=== PATIENT | male | born 1955 | race Caucasian/White ===

== ENCOUNTER 2021-04-26 16:45 | Observation (INO) | payer OTHER ==
[~2021-04-26] VITALS: Ht 170.2 cm; Wt 92.4 kg
[2021-04-26 17:25] LABS: BASOPHILS ABSOLUTE AUTO 0.04 K/mm3 (0.00-0.23); BASOPHILS PERCENT AUTO 0 % (0-2); EOSINOPHILS ABSOLUTE AUTO 0.08 K/mm3 (0.00-0.68); EOSINOPHILS PERCENT AUTO 1 % (0-6); Hematocrit 31.7 % (37.0-53.0); Hemoglobin 10.4 g/dL (13.5-17.5); IMMATURE GRAN ABSOLUTE AUTO 0.04 K/mm3 (0.00-0.10); IMMATURE GRAN PERCENT AUTO 0 % (0-1); LYMPHOCYTES ABSOLUTE AUTO 1.84 K/mm3 (0.84-5.20); LYMPHOCYTES PERCENT AUTO 20 % (21-46); MONOCYTES ABSOLUTE AUTO 0.91 K/mm3 (0.16-1.47); MONOCYTES PERCENT AUTO 10 % (4-13); Mean Corpuscular HGB 30.2 pg (26.0-34.0); Mean Corpuscular HGB Conc 32.8 g/dL (31.5-36.5); Mean Corpuscular Volume 92 fL (80-100); Mean Platelet Volume 9.5 fL (9.1-12.4); NEUTROPHILS ABSOLUTE AUTO 6.15 K/mm3 (1.96-9.15); NEUTROPHILS PERCENT AUTO 68 % (41-73); Platelet Count 221 K/mm3 (150-400); RDW Coefficient Variation 13.3 % (11.7-14.2); RDW Standard Deviation 45.1 fL (35.1-46.3); Red Blood Cell Count 3.44 M/mm3 (4.30-5.90); White Blood Cell Count 9.06 K/mm3 (4.00-11.30)
[2021-04-26 17:59] LABS: Albumin, Blood 3.1 g/dL (3.4-5.0); Albumin/Globulin Ratio 0.9 (0.8-1.8); Bilirubin, Total 0.4 mg/dL (0.1-1.0); Bun/Creatinine Ratio 13.3 (12.0-20.0); Calcium, Blood 9.1 mg/dL (8.5-10.1); Creatinine, Blood 1.5 mg/dL (0.60-1.20); Globulin, Blood 3.4 g/dL (2.2-4.0); Magnesium, Blood 1.7 mg/dL (1.6-2.4); Potassium, Blood 3.2 mmol/L (3.5-5.5); Total Protein, Blood 6.5 g/dL (6.4-8.2); Troponin I 0.228 ng/mL (0.000-0.040)
[2021-04-26] MEDS ORDERED: ELIQUIS5 M2 PO (18:58)
[2021-04-26] MEDS ORDERED: Aspir 8181 MG PO (18:58)
[2021-04-26] MEDS ORDERED: NOVOLOG FL100 UNIT/3 SC (18:59)
[2021-04-26] MEDS ORDERED: GABA100 PO (18:59)
[2021-04-26] MEDS ORDERED: INSULANI SC (18:59)
[2021-04-26] MEDS ORDERED: METO100ER PO (19:00)
[2021-04-26] MEDS ORDERED: METF500 PO (19:00)
[2021-04-26] MEDS ORDERED: OXYC5 PO (19:00)
[2021-04-26] MEDS ORDERED: LISI20 PO (19:00)
[2021-04-26] MEDS ORDERED: PHYT5 PO (19:01)
[2021-04-26] MEDS ORDERED: Crestor20 MG PO (19:01)
[2021-04-26] MEDS ORDERED: TRAZ50 PO (19:03)
[2021-04-26] MEDS ORDERED: SODIUM THIOSULFATE IV (19:03)
[2021-04-26] MEDS ORDERED: TORSE20 PO (19:03)
[2021-04-26] MEDS ORDERED: TAMS.4ER PO (19:03)
[2021-04-27 01:40] LABS: Bun/Creatinine Ratio 13.1 (12.0-20.0); Calcium, Blood 8.9 mg/dL (8.5-10.1); Creatinine, Blood 1.53 mg/dL (0.60-1.20); Potassium, Blood 3.2 mmol/L (3.5-5.5)
--- NOTE | 2021-04-27 07:21 | NUR ---
SHIFT SUMMARY: ADMITTED TO THE FLOOR DUE TO HIGH BLOOD PRESSURES AT HOME AND ELEVATED TROPONIN. AOX3, ABLE TO TRANSFER SELF TO THE BED. PAINFUL WITH MOVEMENT DUE TO LESIONS THAT HE HAS ON BLE. LUNG SOUNDS ARE CLEAR. HR SINUS ON TELE. NO CHEST PAIN THE REST OF SHIFT. VS WERE SLIGHTLY ELEVATED DYSTOLIC. NO LIGHTHEADNESS, CHANGES IN VISION. BLE EDEMA +2. SEVERAL LESIONS NOTED FROM HAVING CALCIPHYLAXIS. [facility] DRESSINGS WERE CHANGED, 6 WOUNDS TOTAL. LARGEST ON THE RIGHT POSTERIOR CALF. PICTURES ARE IN THE CHART. WOUND CARE COMPLETED. BLOOD SUGAR 104 LAST NIGHT, REFUSED HIS LONG ACTING. STATES IT WOULD HAVE DROPPED HIM ALL THE WAY. VERY KNOWLEDGEABLE ABOUT HIS DIABETES AND MANGAGES IT WELL TO KEEP BLOOD SUGAR BELOW 140. SLEPT REST OF THE SHIFT. REPORT GIVEN TO DAYSHIFT. CALL LIGHT IN REACH.
[2021-04-27 12:18] LABS: Calcium, Blood 9.2 mg/dL (8.5-10.1); Creatinine, Blood 1.54 mg/dL (0.60-1.20); Potassium, Blood 3.9 mmol/L (3.5-5.5)
[2021-04-27] MEDS ORDERED: ACET325 PO (14:49)
[2021-04-27] MEDS ORDERED: Aspir 8181 MG PO (14:50)
[2021-04-27] MEDS ORDERED: TORS10 PO (14:54)
--- NOTE | 2021-04-27 15:48 | NUR ---
REVIEW D'C WITH PATIENT AND S.O. AWARE OF CHANGES TO DOSES OF MEDS AND TO STOP DEMADEX FOR 2 DAYS. AWARE NEEDS TO TALK TO HIS RADIO ELECTRONICS OFFICER TO SET UP APPT FOR ANGIO. DENIES ANY C.P/PRESSURE AT THIS TIME. TO F/U V.A. DUE TO RARE INFECTION. ANSWER ALL QUESTIONS. VERBALIZES UNDERSTANDING. IN W/C TO POV DRIVEN BY S.O.
== END 2021-04-27 16:20 | disposition home or self-care (01) ==
LOC: ER 16:45 → SURS 16:46 → MEDS 16:46
PROVIDERS: Internal Medicine; Student in an Organized Health Care Education/Training Program; ADMIT Internal Medicine
DX: R79.89 Other specified abnormal findings of blood chemistry (principal); I13.0 Hypertensive heart and chronic kidney disease with heart failure and stage 1 through stage 4 chronic kidney disease, or unspecified chronic kidney disease; E11.22 Type 2 diabetes mellitus with diabetic chronic kidney disease; N18.32 Chronic kidney disease, stage 3b; I50.9 Heart failure, unspecified; E83.59 Other disorders of calcium metabolism; J44.9 Chronic obstructive pulmonary disease, unspecified; I16.0 Hypertensive urgency; I48.20 Chronic atrial fibrillation, unspecified; E87.6 Hypokalemia; Z79.4 Long term (current) use of insulin; Z79.01 Long term (current) use of anticoagulants
CPT/HCPCS: 36415; 80048; 80053; 82947; 83605; 83735; 84484; 85025; 93005; 93010; A9270; G0378; J1815

== ENCOUNTER 2021-05-26 16:50 | Emergency (ER) | payer OTHER ==
[~2021-05-26] VITALS: Ht 170.2 cm; Wt 86.2 kg
[~2021-05-26 16:50] MED LIST: ACET325 PO; Aspir 8181 MG PO; Crestor20 MG PO; ELIQUIS5 M2 PO; GABA100 PO; INSULANI SC; LISI20 PO; METF500 PO; METO100ER PO; NOVOLOG FL100 UNIT/3 SC; OXYC5 PO; PHYT5 PO; SODIUM THIOSULFATE IV; TAMS.4ER PO; TORS10 PO; TORSE20 PO; TRAZ50 PO
[2021-05-26 17:34] LABS: BASOPHILS ABSOLUTE AUTO 0.04 K/mm3 (0.00-0.23); BASOPHILS PERCENT AUTO 0 % (0-2); EOSINOPHILS PERCENT AUTO 1 % (0-6); Hematocrit 34.4 % (37.0-53.0); IMMATURE GRAN ABSOLUTE AUTO 0.03 K/mm3 (0.00-0.10); IMMATURE GRAN PERCENT AUTO 0 % (0-1); LYMPHOCYTES ABSOLUTE AUTO 1.72 K/mm3 (0.84-5.20); LYMPHOCYTES PERCENT AUTO 19 % (21-46); MONOCYTES PERCENT AUTO 13 % (4-13); Mean Corpuscular HGB 28.8 pg (26.0-34.0); Mean Corpuscular Volume 90 fL (80-100); Mean Platelet Volume 9.8 fL (9.1-12.4); NEUTROPHILS ABSOLUTE AUTO 5.98 K/mm3 (1.96-9.15); NEUTROPHILS PERCENT AUTO 66 % (41-73); Platelet Count 187 K/mm3 (150-400); RDW Coefficient Variation 13.7 % (11.7-14.2); RDW Standard Deviation 44.3 fL (35.1-46.3); Red Blood Cell Count 3.82 M/mm3 (4.30-5.90); White Blood Cell Count 9.07 K/mm3 (4.00-11.30)
[2021-05-26 17:47] LABS: Albumin, Blood 3.3 g/dL (3.4-5.0); Bilirubin, Total 0.4 mg/dL (0.1-1.0); Bun/Creatinine Ratio 22.7 (12.0-20.0); Calcium, Blood 9.6 mg/dL (8.5-10.1); Creatinine, Blood 1.72 mg/dL (0.60-1.20); Globulin, Blood 3.3 g/dL (2.2-4.0); Total Protein, Blood 6.6 g/dL (6.4-8.2); Troponin I 0.111 ng/mL (0.000-0.040)
== END 2021-05-26 20:43 | disposition home or self-care (01) ==
LOC: ER 16:50
PROVIDERS: Emergency Medicine
DX: R09.1 Pleurisy (principal); I11.0 Hypertensive heart disease with heart failure; I50.9 Heart failure, unspecified; E11.9 Type 2 diabetes mellitus without complications; N28.9 Disorder of kidney and ureter, unspecified; R77.8 Other specified abnormalities of plasma proteins; Z79.01 Long term (current) use of anticoagulants; Z79.82 Long term (current) use of aspirin; Z79.899 Other long term (current) drug therapy; Z79.4 Long term (current) use of insulin
CPT/HCPCS: 71046; 80053; 83880; 84484; 85025; 93005; 93010; 96374; 99285-25; A9270; J3010

== ENCOUNTER → 2021-12-13 | Outpatient (CLI) | payer OTHER ==
[2021-12-13 20:09] LABS: BASOPHILS ABSOLUTE AUTO 0.04 K/mm3 (0.00-0.23); BASOPHILS PERCENT AUTO 0 % (0-2); EOSINOPHILS ABSOLUTE AUTO 0.09 K/mm3 (0.00-0.68); EOSINOPHILS PERCENT AUTO 1 % (0-6); Hematocrit 30.5 % (37.0-53.0); Hemoglobin 9.6 g/dL (13.5-17.5); IMMATURE GRAN ABSOLUTE AUTO 0.03 K/mm3 (0.00-0.10); IMMATURE GRAN PERCENT AUTO 0 % (0-1); LYMPHOCYTES ABSOLUTE AUTO 1.78 K/mm3 (0.84-5.20); LYMPHOCYTES PERCENT AUTO 20 % (21-46); MONOCYTES ABSOLUTE AUTO 0.84 K/mm3 (0.16-1.47); MONOCYTES PERCENT AUTO 9 % (4-13); Mean Corpuscular HGB 26.3 pg (26.0-34.0); Mean Corpuscular HGB Conc 31.5 g/dL (31.5-36.5); Mean Corpuscular Volume 84 fL (80-100); Mean Platelet Volume 9.8 fL (9.1-12.4); NEUTROPHILS ABSOLUTE AUTO 6.19 K/mm3 (1.96-9.15); NEUTROPHILS PERCENT AUTO 69 % (41-73); Platelet Count 202 K/mm3 (150-400); RDW Coefficient Variation 17.4 % (11.7-14.2); RDW Standard Deviation 53.3 fL (35.1-46.3); Red Blood Cell Count 3.65 M/mm3 (4.30-5.90); White Blood Cell Count 8.97 K/mm3 (4.00-11.30)
[2021-12-13 20:30] LABS: Albumin/Globulin Ratio 0.7 (0.8-1.8); Bilirubin, Direct 0.1 mg/dL (0.0-0.3); Bilirubin, Indirect 0.1 mg/dL (0.1-0.7); Bilirubin, Total 0.2 mg/dL (0.1-1.0); Bun/Creatinine Ratio 27.9 (12.0-20.0); Calcium, Blood 8.8 mg/dL (8.5-10.1); Creatinine, Blood 1.47 mg/dL (0.60-1.20); Globulin, Blood 4.2 g/dL (2.2-4.0); Potassium, Blood 3.9 mmol/L (3.5-5.5); Total Protein, Blood 7.2 g/dL (6.4-8.2)
[2021-12-13 20:33] LABS: C-Reactive Protein, High Sens. 21.5 mg/L (0.000-3.000)
== END ==
LOC: LAB SHORT 17:10
DX: M86.171 Other acute osteomyelitis, right ankle and foot (principal); M61.9 Calcification and ossification of muscle, unspecified
CPT/HCPCS: 80053; 82248; 85025; 86141

== ENCOUNTER → 2021-12-20 | Outpatient (CLI) | payer OTHER ==
[2021-12-20 15:25] LABS: BASOPHILS ABSOLUTE AUTO 0.05 K/mm3 (0.00-0.23); BASOPHILS PERCENT AUTO 1 % (0-2); EOSINOPHILS ABSOLUTE AUTO 0.03 K/mm3 (0.00-0.68); EOSINOPHILS PERCENT AUTO 0 % (0-6); Hematocrit 31.9 % (37.0-53.0); Hemoglobin 9.8 g/dL (13.5-17.5); IMMATURE GRAN ABSOLUTE AUTO 0.02 K/mm3 (0.00-0.10); IMMATURE GRAN PERCENT AUTO 0 % (0-1); LYMPHOCYTES ABSOLUTE AUTO 1.54 K/mm3 (0.84-5.20); LYMPHOCYTES PERCENT AUTO 20 % (21-46); MONOCYTES ABSOLUTE AUTO 0.91 K/mm3 (0.16-1.47); MONOCYTES PERCENT AUTO 12 % (4-13); Mean Corpuscular HGB 25.3 pg (26.0-34.0); Mean Corpuscular HGB Conc 30.7 g/dL (31.5-36.5); Mean Corpuscular Volume 82 fL (80-100); Mean Platelet Volume 9.9 fL (9.1-12.4); NEUTROPHILS ABSOLUTE AUTO 5.29 K/mm3 (1.96-9.15); NEUTROPHILS PERCENT AUTO 68 % (41-73); Platelet Count 252 K/mm3 (150-400); RDW Coefficient Variation 16.7 % (11.7-14.2); RDW Standard Deviation 50.2 fL (35.1-46.3); Red Blood Cell Count 3.87 M/mm3 (4.30-5.90); White Blood Cell Count 7.84 K/mm3 (4.00-11.30)
[2021-12-20 15:29] LABS: Albumin, Blood 3.1 g/dL (3.4-5.0); Albumin/Globulin Ratio 0.8 (0.8-1.8); Bilirubin, Direct 0.1 mg/dL (0.0-0.3); Bilirubin, Indirect 0.1 mg/dL (0.1-0.7); Bilirubin, Total 0.2 mg/dL (0.1-1.0); Bun/Creatinine Ratio 32.3 (12.0-20.0); Calcium, Blood 9.3 mg/dL (8.5-10.1); Creatinine, Blood 1.58 mg/dL (0.60-1.20); Globulin, Blood 4.1 g/dL (2.2-4.0); Potassium, Blood 4.1 mmol/L (3.5-5.5); Total Protein, Blood 7.2 g/dL (6.4-8.2)
== END ==
LOC: LAB SHORT 13:30
DX: M86.171 Other acute osteomyelitis, right ankle and foot (principal); B95.61 Methicillin susceptible Staphylococcus aureus infection as the cause of diseases classified elsewhere; M61.9 Calcification and ossification of muscle, unspecified; E83.59 Other disorders of calcium metabolism; I13.0 Hypertensive heart and chronic kidney disease with heart failure and stage 1 through stage 4 chronic kidney disease, or unspecified chronic kidney disease; N18.9 Chronic kidney disease, unspecified; I50.20 Unspecified systolic (congestive) heart failure
CPT/HCPCS: 80053; 82248; 85025

== ENCOUNTER 2021-12-27 21:07 | Inpatient (IN) | payer OTHER ==
[~2021-12-27] VITALS: Ht 170.2 cm; Wt 83.9 kg
[2021-12-27 22:07] LABS: BASOPHILS ABSOLUTE AUTO 0.04 K/mm3 (0.00-0.23); BASOPHILS PERCENT AUTO 0 % (0-2); EOSINOPHILS PERCENT AUTO 0 % (0-6); Hematocrit 33.4 % (37.0-53.0); Hemoglobin 10.1 g/dL (13.5-17.5); IMMATURE GRAN PERCENT AUTO 1 % (0-1); LYMPHOCYTES PERCENT AUTO 4 % (21-46); MONOCYTES ABSOLUTE AUTO 1.84 K/mm3 (0.16-1.47); MONOCYTES PERCENT AUTO 10 % (4-13); Mean Corpuscular HGB 24.7 pg (26.0-34.0); Mean Corpuscular HGB Conc 30.2 g/dL (31.5-36.5); Mean Corpuscular Volume 82 fL (80-100); Mean Platelet Volume 9.7 fL (9.1-12.4); NEUTROPHILS ABSOLUTE AUTO 16.11 K/mm3 (1.96-9.15); NEUTROPHILS PERCENT AUTO 85 % (41-73); Platelet Count 226 K/mm3 (150-400); RDW Coefficient Variation 16.8 % (11.7-14.2); RDW Standard Deviation 49.8 fL (35.1-46.3); Red Blood Cell Count 4.09 M/mm3 (4.30-5.90); White Blood Cell Count 18.89 K/mm3 (4.00-11.30)
[2021-12-27 22:19] LABS: Albumin, Blood 3.1 g/dL (3.4-5.0); Albumin/Globulin Ratio 0.9 (0.8-1.8); Bilirubin, Total 0.5 mg/dL (0.1-1.0); Bun/Creatinine Ratio 23.6 (12.0-20.0); Calcium, Blood 8.9 mg/dL (8.5-10.1); Creatinine, Blood 1.95 mg/dL (0.60-1.20); Globulin, Blood 3.6 g/dL (2.2-4.0); Potassium, Blood 5.1 mmol/L (3.5-5.5); Total Protein, Blood 6.7 g/dL (6.4-8.2)
[2021-12-27] MEDS ORDERED: ALEN70 PO (23:01)
[2021-12-27] MEDS ORDERED: KLOR-CON 1010 ME6 PO (23:02)
[2021-12-27] MEDS ORDERED: JARDIANCE10 MG PO (23:03)
[2021-12-27] MEDS ORDERED: ENTRESTO 24 MG1 EACH PO (23:03)
[2021-12-27 23:26] LABS: Source, Urine Clean Catch
[2021-12-27 23:31] LABS: Appearance, Urine Clear (Clear); Bilirubin, Urine Neg (Neg); Blood, Urine 5+ (Neg); Color, Urine Yellow (P-Yellow); Glucose Qualitative, Urine 4+ (Neg); Ketones, Urine Neg (Neg); Leukocyte Esterase, Urine Neg (Neg); Nitrite, Urine Neg (Neg); Protein, Urine 3+ (Neg); Urobilinogen, Urine NORM (Normal)
[2021-12-28 00:20] LABS: Amorphous Light (0-Heavy); Bacteria Few /hpf; Granular Casts 0-2 /lpf (0); Squamous Epithelial Cells Rare /hpf (Few)
[2021-12-28 12:45] LABS: BASOPHILS ABSOLUTE AUTO 0.05 K/mm3 (0.00-0.23); BASOPHILS PERCENT AUTO 0 % (0-2); EOSINOPHILS PERCENT AUTO 0 % (0-6); Hematocrit 32.3 % (37.0-53.0); Hemoglobin 9.9 g/dL (13.5-17.5); IMMATURE GRAN ABSOLUTE AUTO 0.11 K/mm3 (0.00-0.10); IMMATURE GRAN PERCENT AUTO 1 % (0-1); LYMPHOCYTES ABSOLUTE AUTO 1.39 K/mm3 (0.84-5.20); LYMPHOCYTES PERCENT AUTO 7 % (21-46); MONOCYTES ABSOLUTE AUTO 2.15 K/mm3 (0.16-1.47); MONOCYTES PERCENT AUTO 11 % (4-13); Mean Corpuscular HGB 24.7 pg (26.0-34.0); Mean Corpuscular HGB Conc 30.7 g/dL (31.5-36.5); Mean Corpuscular Volume 81 fL (80-100); Mean Platelet Volume 10.2 fL (9.1-12.4); NEUTROPHILS ABSOLUTE AUTO 16.36 K/mm3 (1.96-9.15); NEUTROPHILS PERCENT AUTO 82 % (41-73); Platelet Count 227 K/mm3 (150-400); RDW Coefficient Variation 16.9 % (11.7-14.2); RDW Standard Deviation 49.9 fL (35.1-46.3); Red Blood Cell Count 4.01 M/mm3 (4.30-5.90); White Blood Cell Count 20.06 K/mm3 (4.00-11.30)
[2021-12-28 12:51] LABS: Bun/Creatinine Ratio 22.5 (12.0-20.0); Calcium, Blood 9.1 mg/dL (8.5-10.1); Creatinine, Blood 2.13 mg/dL (0.60-1.20); Potassium, Blood 5.3 mmol/L (3.5-5.5)
[2021-12-28] MEDS ORDERED: CEFTRIAXONE2 G1 IV (13:12)
[2021-12-28 13:25] LABS: Albumin, Blood 2.7 g/dL (3.4-5.0); Albumin/Globulin Ratio 0.8 (0.8-1.8); Bilirubin, Direct 0.3 mg/dL (0.0-0.3); Bilirubin, Indirect 0.3 mg/dL (0.1-0.7); Bilirubin, Total 0.6 mg/dL (0.1-1.0); Globulin, Blood 3.6 g/dL (2.2-4.0); Total Protein, Blood 6.3 g/dL (6.4-8.2)
[2021-12-28 16:55] LABS: Influenza A, PCR NEGATIVE (NEGATIVE); Influenza B, PCR NEGATIVE (NEGATIVE); Resp Syncytial Virus, PCR NEGATIVE (NEGATIVE); SARS-Cov-2 (COVID-19) PCR, MMC NEGATIVE (NEGATIVE)
--- NOTE | 2021-12-28 18:44 | NUR ---
SHIFT SUMMARY PT WILL BE TRANFERRING TO [facility]. HIS TEAM OF SPECIALISTS IS UP THERE AND HIS AND DR FEEL THAT IT WOULD BE BEST FOR HIM TO BE SEEN BY A TRAVERTINE INSTALLER UP THERE. HE HAS BEEN CONFUSED TODAY WHILE WAS NOT IN THE ROOM. UNABLE TO REMEMEBR DAY OR TOWN HE WAS IN. WHILE IS HERE HE WAS MUCH MORE COHERENT AND COULD GIVE A BETTER REPORT ON HIMSELF. REPORT WAS GIVEN TO [facility] NURSE CRYSTAL. WILL CONTINUE TO MONITOR UNTIL TRANSPORT ARRIVES.
== END 2021-12-28 18:59 | DRG 872 ==
LOC: ER 21:07 → MEDS 12-28 05:38
PROVIDERS: Internal Medicine; Internal Medicine Nephrology; Physician Assistant; ADMIT Internal Medicine
DX: A41.9 Sepsis, unspecified organism (principal); N28.0 Ischemia and infarction of kidney; I13.0 Hypertensive heart and chronic kidney disease with heart failure and stage 1 through stage 4 chronic kidney disease, or unspecified chronic kidney disease; I50.22 Chronic systolic (congestive) heart failure; E87.1 Hypo-osmolality and hyponatremia; I48.20 Chronic atrial fibrillation, unspecified; E87.2 Acidosis; Z20.822 Contact with and (suspected) exposure to COVID-19; E83.59 Other disorders of calcium metabolism; N18.30 Chronic kidney disease, stage 3 unspecified; E11.22 Type 2 diabetes mellitus with diabetic chronic kidney disease; E11.40 Type 2 diabetes mellitus with diabetic neuropathy, unspecified; F43.10 Post-traumatic stress disorder, unspecified; F32.A Depression, unspecified; Z79.4 Long term (current) use of insulin; Z79.01 Long term (current) use of anticoagulants; Z79.899 Other long term (current) drug therapy
CPT/HCPCS: 0241U; 36415; 71045; 74177; 80048; 80053; 80076; 81001; 82947; 83605; 83615; 83880; 85025; 87040; 93306; 96365; 96366; 96367; 96375; 99285-25; A9270; J0696; J1815; J2543; J3370; J7030; J7050; Q9967

== ENCOUNTER 2022-01-20 17:38 | Inpatient (IN) | payer OTHER ==
[~2022-01-20] VITALS: Ht 170.2 cm; Wt 102.3 kg
[~2022-01-20 17:38] MED LIST changes: +ALEN70 PO; +CEFTRIAXONE2 G1 IV; +ENTRESTO 24 MG1 EACH PO; +JARDIANCE10 MG PO; +POTCHL20ER PO; -TORS10 PO
[2022-01-20 18:46] LABS: BASOPHILS ABSOLUTE AUTO 0.01 K/mm3 (0.00-0.23); BASOPHILS PERCENT AUTO 0 % (0-2); EOSINOPHILS ABSOLUTE AUTO 0.03 K/mm3 (0.00-0.68); EOSINOPHILS PERCENT AUTO 0 % (0-6); Hematocrit 29.2 % (37.0-53.0); Hemoglobin 8.7 g/dL (13.5-17.5); IMMATURE GRAN ABSOLUTE AUTO 0.03 K/mm3 (0.00-0.10); IMMATURE GRAN PERCENT AUTO 0 % (0-1); LYMPHOCYTES ABSOLUTE AUTO 1.17 K/mm3 (0.84-5.20); LYMPHOCYTES PERCENT AUTO 12 % (21-46); MONOCYTES ABSOLUTE AUTO 0.91 K/mm3 (0.16-1.47); MONOCYTES PERCENT AUTO 9 % (4-13); Mean Corpuscular HGB 23.6 pg (26.0-34.0); Mean Corpuscular HGB Conc 29.8 g/dL (31.5-36.5); Mean Corpuscular Volume 79 fL (80-100); Mean Platelet Volume 10.8 fL (9.1-12.4); NEUTROPHILS ABSOLUTE AUTO 7.77 K/mm3 (1.96-9.15); NEUTROPHILS PERCENT AUTO 78 % (41-73); NRBC ABSOLUTE 0.06 K/mm3 (0.00-0.02); NRBC Auto 0.6 /100 WBC (0.0-0.2); Platelet Count 186 K/mm3 (150-400); RDW Coefficient Variation 17.2 % (11.7-14.2); RDW Standard Deviation 48.8 fL (35.1-46.3); Red Blood Cell Count 3.69 M/mm3 (4.30-5.90); White Blood Cell Count 9.92 K/mm3 (4.00-11.30)
[2022-01-20 19:09] LABS: Alanine Aminotransfer (ALT/SGP 320 U/L (12-78); Albumin/Globulin Ratio 0.9 (0.8-1.8); Alk Phos 663 U/L (50-136); Anion Gap 9 mmol/L (6-16); Aspartate Aminotrans (AST/SGOT 124 U/L (12-37); Bilirubin, Total 0.9 mg/dL (0.1-1.0); Blood Urea Nitrogen 77 mg/dL (8-24); Bun/Creatinine Ratio 28.7 (12.0-20.0); CO2, Blood 19 mmol/L (21-32); Calcium, Blood 8.4 mg/dL (8.5-10.1); Chloride, Blood 99 mmol/L (98-108); Creatinine, Blood 2.68 mg/dL (0.60-1.20); Globulin, Blood 3.4 g/dL (2.2-4.0); Glomerular Filtration Rate 24 (60-); Glucose, Blood 532 mg/dL (70-99); Potassium, Blood 5.6 mmol/L (3.5-5.5); Sodium, Blood 127 mmol/L (136-145); Total Protein, Blood 6.4 g/dL (6.4-8.2)
[2022-01-20 19:52] LABS: Base Excess Venous -9.3 mmol/L; Bicarbonate Venous 17.5 mmol/L (24.0-30.0); PCO2 Venous 35.2 mmHg (38-42); PO2 Venous 84.5 mmHg (38-42)
[2022-01-20 20:55] LABS: Source, Urine Clean Catch
[2022-01-20 20:59] LABS: Appearance, Urine Clear (Clear); Bilirubin, Urine Neg (Neg); Blood, Urine 1+ (Neg); Color, Urine Yellow (P-Yellow); Glucose Qualitative, Urine 4+ (Neg); Ketones, Urine Neg (Neg); Leukocyte Esterase, Urine Neg (Neg); Nitrite, Urine Neg (Neg); Protein, Urine 3+ (Neg); Urobilinogen, Urine NORM (Normal)
[2022-01-20 21:07] LABS: Bacteria Few /hpf; Hyaline Casts 0-2 /lpf (0-2); Squamous Epithelial Cells Rare /hpf (Few)
[2022-01-20 22:13] LABS: CHOL/HDL RATIO 2.4; Cholesterol 95 mg/dL (50-200); HDL Cholesterol 40 mg/dL (>39); LDL/HDL RATIO 0.9; Low Density Lipoprotein Chol 36 mg/dL (0-110); Triglycerides 94 mg/dL (30-160); Very Low Density Lipoprot Chol 18 mg/dL (6-32)
[2022-01-20 23:57] LABS: International Normalized Ratio 1.16; Prothrombin Time Results 12.1 Sec (9.7-11.5)
[2022-01-21 00:27] LABS: Bun/Creatinine Ratio 29.9 (12.0-20.0); Calcium, Blood 8.1 mg/dL (8.5-10.1); Creatinine, Blood 2.64 mg/dL (0.60-1.20); Percent Saturation 3.8 % (20.0-50.0)
--- NOTE | 2022-01-21 03:21 | NUR ---
ASSUMED PT CARE AT 2310 PT ARRIVED FROM ED [place]. ALERT AND ORIENTED TO PERSON, PLACE, CITY, YEAR, AND SURROUNDINGS. PT NOTED TO BE MAKING NON-SENSICAL STATEMENTS AT TIMES, WELL FALLING ASLEEP MID CONVERSATION. PT APPEARS MENTALLY ALTERED/FORGETFUL. VERY PLEASANT AND COOPERATIVE WITH CARES. C/O PAIN TO BILATERAL LEGS/FEET. STATES HE HAS NEUROPATHY AND TAKES GABAPENTIN AT HOME FOR THE PAIN. CHRONIC ULCERS ALSO NOTED TO BLE'S; HOWEVER, LEFT OPEN TO AIR D/T NO DRAINAGE. PICTURES ARE IN CHART. INSULIN INFUSING AT 8 UNITS/HR UPON ARRIVAL TO UNIT; BLOOD SUGAR CHECKED SHORTLY AFTER AND INSULIN DROPPED TO 3 UNITS/HR. PT HAS A 20G TO LEFT AC. ATTEMPTED ANOTHER IV START FOR HEPARIN GTT, WHICH WAS UNSUCCESSFUL. POWERGLIDE WAS STARTED TO LEFT UPPER ARM WITH SUCCESS AND HEPARIN STARTED AT ORDERED RATE OF 15 UNITS/KG/HR. CALL LIGHT IS WITHIN REACH. WILL CONTINUE TO MONITOR UNTIL REPORT IS HANDED OFF TO ONCOMING RN. SEE SHIFT SUMMARY FOR FURTHER DETAILS.
[2022-01-21] MEDS ORDERED: METO100ER PO (03:34)
[2022-01-21] MEDS ORDERED: LIDO5TO TOP (03:35)
[2022-01-21] MEDS ORDERED: COMBIVENT RESPIM4 G1 MT (03:37)
[2022-01-21] MEDS ORDERED: ALBU90OI INH (03:37)
[2022-01-21 04:06] LABS: BASOPHILS PERCENT AUTO 0 % (0-2); EOSINOPHILS ABSOLUTE AUTO 0.08 K/mm3 (0.00-0.68); EOSINOPHILS PERCENT AUTO 1 % (0-6); Hematocrit 25.4 % (37.0-53.0); Hemoglobin 7.6 g/dL (13.5-17.5); IMMATURE GRAN ABSOLUTE AUTO 0.04 K/mm3 (0.00-0.10); IMMATURE GRAN PERCENT AUTO 1 % (0-1); LYMPHOCYTES PERCENT AUTO 20 % (21-46); MONOCYTES PERCENT AUTO 10 % (4-13); Mean Corpuscular HGB 23.8 pg (26.0-34.0); Mean Corpuscular HGB Conc 29.9 g/dL (31.5-36.5); Mean Corpuscular Volume 79 fL (80-100); Mean Platelet Volume 10.9 fL (9.1-12.4); NEUTROPHILS ABSOLUTE AUTO 6.04 K/mm3 (1.96-9.15); NEUTROPHILS PERCENT AUTO 68 % (41-73); NRBC ABSOLUTE 0.13 K/mm3 (0.00-0.02); NRBC Auto 1.5 /100 WBC (0.0-0.2); Platelet Count 167 K/mm3 (150-400); RDW Standard Deviation 49.1 fL (35.1-46.3); White Blood Cell Count 8.86 K/mm3 (4.00-11.30)
[2022-01-21 04:24] LABS: Bun/Creatinine Ratio 28.8 (12.0-20.0); Calcium, Blood 7.3 mg/dL (8.5-10.1); Creatinine, Blood 2.43 mg/dL (0.60-1.20); Potassium, Blood 4.4 mmol/L (3.5-5.5)
--- NOTE | 2022-01-21 04:50 | NUR ---
SPOKE WITH DR. LIU UPDATED REGARDING LAB RESULTS. NEW ORDERS TO PLACE INSULIN ON STANDBY AND TREND SUGARS. NEW ORDERS FOR ADA DIET.
--- NOTE | 2022-01-21 05:53 | NUR ---
END OF SHIFT SUMMARY PT HAS SLEPT MOST OF SHIFT. EASILY AROUSABLE TO VERBAL STIMULI. FOLLOWS COMMANDS APPROPRIATELY. PT HASN'T VOIDED ALL SHIFT; BLADDER SCANNED WITH 400CC IN BLADDER. HOWEVER, PT HAS BEEN SLEEPING NOT FULLY AWAKE TO EMPTY BLADDER. WILL HAVE DAY SHIFT REASSESS IN THE MORNING. INSULIN GTT IS OFF CURRENTLY. HEPARIN INFUSING AT 15 UNITS/KG/HR. POWERGLIDE TO LEFT UPPER ARM AND 20G TO LEFT AC. WILL CONTINUE TO MONITOR UNTIL REPORT IS HANDED OFF TO ONCOMING RN.
--- NOTE | 2022-01-21 07:56 | NUR ---
TOOK OVER CARE OF PT AT 0700, PT RESTING ON RA WITH HEPARIN DRIP RUNNING AT 15UNITS/KG/HR
--- NOTE | 2022-01-21 08:08 | NUR ---
CALLED TO BEDSIDE TO DISCUSS PLAN OF CARE AND PT CONDITION.
[2022-01-21 09:56] LABS: Albumin, Blood 2.3 g/dL (3.4-5.0); Albumin/Globulin Ratio 0.9 (0.8-1.8); Bun/Creatinine Ratio 29.8 (12.0-20.0); Calcium, Blood 7.4 mg/dL (8.5-10.1); Creatinine, Blood 2.45 mg/dL (0.60-1.20); Globulin, Blood 2.7 g/dL (2.2-4.0); Potassium, Blood 5.2 mmol/L (3.5-5.5)
[2022-01-21 10:05] LABS: Percent Saturation 5.2 % (20.0-50.0)
[2022-01-21 11:51] LABS: PCO2 Arterial 29.8 mmHg (35-45); PO2 Arterial 245 mmHg (80-100); pH Blood Arterial 7.33 (7.35-7.45)
[2022-01-21 13:34] LABS: Source, Urine Foley catheter
[2022-01-21 14:28] LABS: Appearance, Urine Clear (Clear); Bilirubin, Urine Neg (Neg); Blood, Urine 1+ (Neg); Color, Urine Yellow (P-Yellow); Glucose Qualitative, Urine 4+ (Neg); Ketones, Urine Neg (Neg); Leukocyte Esterase, Urine Neg (Neg); Nitrite, Urine Neg (Neg); Protein, Urine 3+ (Neg); Urobilinogen, Urine NORM (Normal)
[2022-01-21 14:52] LABS: Bacteria Few /hpf; Renal Epithelial Rare /hpf (0-Rare); Squamous Epithelial Cells Rare /hpf (Few)
[2022-01-21 14:53] LABS: Hyaline Casts 0-2 /lpf (0-2); Spermatozoa Few /hpf
[2022-01-21 15:50] LABS: U Amphetamine Screen Not Detected; U Barbituate Screen Not Detected; U Benzodiazapine Screen Not Detected; U Buprenorphine Screen Not Detected; U Cannabinoids Screen Not Detected; U Cocaine Screen Not Detected; U Methadone Screen Not Detected; U Methamphetamine Screen Not Detected; U Opiates Screen DETECTED; U Oxycodone Screen Not Detected; U Phencyclidine Screen Not Detected; U Propoxyphene Screen Not Detected
--- NOTE | 2022-01-21 17:25 | NUR ---
Returned to ICU and met with pt's for approx 45 minutes. Time spent listening to and Miguel's recent hx with his illness and suffering with multiple severe health issues, CHF, Renal failure, Rare skin dx thought to be related to [place] exposure. Miguel is a 100% service connected . He has been cycling through the [facility] in [place] and [place], as well as other hospitals recently with recurrent ES CHF. reports he has always been noncompliant with home care for DM and CHF as well as CKD. In recent months pt's mentation has declined with frequent visual and auditory hallucinations, verbally and physically abusive behavior that is not something has expreienced with pt previously. Pt has EF of 20% and worsening renal function. After listening and supporting pt's , options offered of cont full care a little longer, DNR with full care cont. and transition to comfort care. states she has been through this cycle many times and witnessed 's suffering and feels if he could process this information he would not choose to cont with tx, dialysis or a resuscitation effort. requests that we transition pt to comfort care. Above visit reported to pt's RN, ICU dry pan charger and pt's DR. ODEN for comfort care orders and seroquel for sleep obtained and entered. Encouraged to get some rest, care for herself and that we would begin planning for d/c with hospice if possible. First choice for is the [place] hospice unit. She is unable to care for Miguel at home any longer. She has lupus and is experiencing decreased liver function herself currently. Will visit daily for s/s management and support. Hospice/manager social services order entered also.
--- NOTE | 2022-01-21 18:21 | NUR ---
SUMMARY PT CODE STATUS CHANGED TO COMFORT CARE, PLANS TO TX TO [place] [facility] NEURO; A/O X2, FOLLOWS COMMANDS, LETHARGIC CARDIAC; MOTTLED BUE, CYANOTIC FINGERS, BLE +2 EDEMA, AFIB SKIN; WOUNDS BLE WITH DRESSINGS IN PLACE, COLD TO TOUCH ON EXTREMETIES GI/; NO BM, LOW UO. ONLY 100ML AFTER BUMEX.
--- NOTE | 2022-01-21 19:46 | NUR ---
ASSUMED PT CARE AT 1915 PT SITTING UP IN BED. ALERT AND CONVERSING WITH STAFF. APPEARS SOB WITH MINIMAL EXERTION. DRIFTS OFF TO SLEEP EASILY AND THEN AWAKENS TO TAKE SMALL BITES OF DINNER. CALL LIGHT IS WITHIN REACH AND PT IS ABLE TO MAKE HIS NEEDS KNOWN. WILL CONTINUE TO REASSESS TO ENSURE PT IS COMFORTABLE
--- NOTE | 2022-01-21 20:30 | NUR ---
PT DECLINED HS PERSONAL CARES DENIES SOB, ANXIETY, NAUSEA, AND/OR PAIN. PT ABLE TO SHIFT OWN WEIGHT AND REPOSITION SELF. WILL CONTINUE TO REASSESS COMFORT NEEDS
--- NOTE | 2022-01-22 07:04 | NUR ---
TOOK OVER CARE OF PT AT 0700, PT IS COMFORT CARE, RESTING QUIETLY IN BED AT THIS TIME.
--- NOTE | 2022-01-22 13:00 | NUR ---
[facility] Care comfort care visit made to pt and at bedside. Pt appears calm and fairly comfortable. He is not exhibiting nonverbal s/s of pain, anxiety, agitation currently. He is reporting feeling very cold and has a warming blanket on. at bedside and looks much more rested and relaxed than yesterday. She reports she got a good sleep at home last night. They are engaging in light conversation and story telling with each other and me. Both are able to smile easily. Miguel told me story of an event that happened long ago, that corroborated. He lost his train of thought occassionally but was able to return to the thread of the story and complete it in time. He denies pain or other distressing s/s. reports multiple family members expected in to visit. Additional chairs brought to the room and comfort care cart ordered for the room. inquired about transfer to the [place] hosp[facility] unit. I let her know I had left a for ICU CM to [facility]. I will also call and leave a message for the [facility] palliative care team today, who will be available tomorrow am also. I educated that [facility] would want to evaluate themselves and determine if criteria met for their unit IF a bed was available. If no [facility] hospice unit bed available or if he is not accepted there, CM will assist in finding another hospice placement option. Discussed all of the above with pt's RN also.
--- NOTE | 2022-01-22 15:19 | NUR ---
Care assumed of pt at 1400. Pt without complaints eating snack, family at bedside. Pt to room 308, family aware.
--- NOTE | 2022-01-22 16:16 | NUR ---
MR UMANA ARRIVED TO MEDICAL FLOOR FROM ICU AT 1545HRS. HE DENIES PAIN OR NAUSEA, BUT IS VERY ITCHY. HIS SAID THAT HE HAS BEEN ITCHY ALL OVER. DR WALKER CALLED FOR TREATMENT ORDER - BENADRYL 25MG IV Q6PRN ORDERED. HE ALSO SAID TO STOP LOPRESSOR NOW AND STOP BUMEX AFTER TODAY. NON ADHESIVE WOUND DRESSING AND KERLEX APPLIED TO BOTH LEGS FOR PT COMFORT. FAMILY AT BEDSIDE.
--- NOTE | 2022-01-22 17:19 | NUR ---
COMFORT CARE BENADRYL HAS HELPED TO DECREASE THE ITCHINESS. PT INCONTINENT OF LARGE AMOUNT OF URINE. CLEANED, CHANGED AND REPOSITIONED. PT DENIES PAIN. AT BEDSIDE. HE TOOK SIPS OF WATER FROM HIS . SAID SHE FEELS LIKE HE'S BREATHING "RAGGEDLY" OFFERED ROXANOL.
--- NOTE | 2022-01-22 18:02 | NUR ---
SHIFT SUMMARY MR UMANA IS ON COMFORT CARE. AT HIS BEDSIDE. HE HASN'T TALKED A LOT WITH ME, BUT SAID HE HAS BEEN MOSTLY ORIENTATED, SLIGHT CONFUSION. SHE REPORTS THAT HE HAD VISUAL HALLUCINATIONS THIS MORNING, NOTHING RECENTLY. MAIN C/O ITCHING - BENADRYL 25MG IV HELPED FOR A WHILE, BUT HE IS STARTING TO SCRATCH AGAIN. SAID HIS BREATHING SEEMED A LITTLE "RAGGED" COMPARED TO HIS NORM, ROXANOL 10MG GIVEN. HE HAS BEEN TURNED AND REPOSITIONED, BUT ALSO TURNS HIMSELF IN BED. BED LOW, CALL LIGHT IN REACH.
[2022-01-23 00:09] LABS: HEMOGLOBIN A1C 11.6 % (4.8-5.6)
--- NOTE | 2022-01-23 01:08 | NUR ---
AT BEDSIDE. PT WITH HOB ELEVATED. CALL LIGHT IN REACH
--- NOTE | 2022-01-23 01:10 | NUR ---
COMFORT CARE - REPOSITIONED WITH ASSISTAANCE AND INCONT OF URINE. CHANGED. CALL LIGHT IN REACH
--- NOTE | 2022-01-23 01:11 | NUR ---
LIFE SCIENCES MANAGER DOCUMENTATION REVIEWED. I AGREE WITH DOCUMENTATION
--- NOTE | 2022-01-23 04:34 | NUR ---
SHUTTLE HAND SUMMARY REMAINS ON COMFORT CARE. WAS AT BEDSIDE UNTIL LATE HS, THEN LEFT FOR HOME. PT ABLE TO REPOSITION SELF IN BED FOR COMFORT, DENIED PAIN WHEN ASKED. INCONT AND CHANGED. CALL LIGHT IN REACH. HOB ELEVATED. WILL CONTINUE TO MONITOR
--- NOTE | 2022-01-23 11:47 | NUR ---
Comfort care visit. Pt sleeping but woke easily to voice while I spoke with his family. Brother, IVONNE, niece at bedside. Pt denies pain. He is dyspnic with talking short sentances, briefly and sounds winded with effort. He appears sl anxious. His chief c/o is intense itching and he was trying to relieve with rubbing back against sheets. He states he was given something prev that was helpful. Pt drifted back to sleep freq t/o my visit. Updated family on Health Safety Engineer who would be speaking with today and contacting [facility] to check on hospice placement availability. Comfort Care Cart checked. Spoke with RN after my visit and CM before/after. RN to get prn order for vistaril for itching. Benadryl is currently ordered also for prn use. Plan daily visits for s/s assessment and support.
--- NOTE | 2022-01-23 16:47 | NUR ---
SHIFT SUMMARY PT AxOx2-3 WITH FREQUENT CONFUSION AND DROWSINESS. PT ON COMFORT CARE. FAMILY IN ROOM THIS SHIFT, INCLUDING - JOVAN. PT REPORTS ITCHYING ALL OVER BODY. MEDICATED PER EMAR. ICE, POWDER, AND MULTIPLE BED LINEN CHANGES PROVIDED TO HELP DECREASE ITCHING WELL. PT DENIES PAIN THIS SHIFT. PT DID HAVE SOME DYSPNEA AND WAS PROVIDED MEDICATION, AND O2 WITH REPORTED RELIEF. CURRENT PLAN IS TO TRANSFER TO [place] FOR HOSPICE CARE. PT CURRENTLY RESTING IN BED WITH CALL LIGHT IN REACH.
--- NOTE | 2022-01-24 06:37 | NUR ---
SHIFT SUMMARY PATIENT ALERT AND ORIENTED. MEDICATED PER EMAR FOR PAIN AND ITCHING. NO ACUTE ISSUES NOTED OVERNIGHT. CALL LIGHT WITHIN REACH. REPORT GIVEN TO ONCOMING RN.
--- NOTE | 2022-01-24 08:03 | NUR ---
patient is asleep and resting with no signs of anxiety or dyspnea. patients is present during comfort care assessment.
--- NOTE | 2022-01-24 10:12 | NUR ---
patient is sleeping, no agitation or no dyspnea present family is present during assessment. patient recevied a bedbath and pain medication. powerglide not able to flush, peripheral IV flushed with 10ml of NS.
--- NOTE | 2022-01-24 11:05 | NUR ---
Summary of am comfort care visits and case conferences with RN, student nurse, CM and [facility] Palliative Care RN here to screen pt at 0930. On my first visit to bedside,(pt's , IVONNE KERR, niece also present) pt appears anxious, painful, dyspnic and restless with intense itching. Skin on arms/upper trunk red and warm to touch. Pt grimacing, moaning and some gasping for breath noted. Report given to RN and student nurse who will also assess and medicate, which they did immediately. When I returned 30 minutes later, pt resting/sleeping quietly in bed. had gone home to rest as she had stayed the night with [facility]. Pt looks extremely comfortable and calm on second assessment. Time spent outside of room with prior to her leaving. She would very much like pt to be transferred to [place] hospice unit. I contacted [place] [facility] team who confirmed they would be screening [facility] this am for one of their available beds. Later met with [place] [facility] RNPatricia and provided hx and update when she came to screen. All of the above provided to CM coordinating pt's d/c.
[2022-01-24 12:25] LABS: Influenza A, PCR NEGATIVE (NEGATIVE); Influenza B, PCR NEGATIVE (NEGATIVE); Resp Syncytial Virus, PCR NEGATIVE (NEGATIVE); SARS-Cov-2 (COVID-19) PCR, MMC NEGATIVE (NEGATIVE)
--- NOTE | 2022-01-24 12:43 | NUR ---
patient was given a new nictotine patch and IV bendryl. patient resting comfortably.
[2022-01-24] MEDS ORDERED: MORP20L SL (12:49)
--- NOTE | 2022-01-24 15:29 | NUR ---
PATIENT WAS NOT AGITATED, NO DYSPNEA. PATIENT WAS MEDICATED WITH MOPRHRINE. PATIENTS POWERGLIDE AND PERIPHERAL IV WAS REMOVED WITH NO COMPLICATIONS.
--- NOTE | 2022-01-24 15:44 | NUR ---
Late note. visit conducted around 1345 on 01/24/22. After being contacted by Shotgun Shell Assembly Machine Operator from the [facility] in [place] requesting that spiritual care be offered to the pt and family, I visit the pt. Patient is minimally responsive and has 6 or so family members present in the rm. I conduct a life review of the pt, learn of the family dynamics and hear about the pt's impressive character and generous heart. Family is tearful at times and compassionate toward the pt and each other. I provide therapeutic listening, gentle juvenile counselor and prayer. The family respond well and show signs of being comforted.
== END 2022-01-24 14:43 | disposition hospice, inpatient (51) | DRG 280 ==
LOC: ER 17:38 → ICUW 17:39 → MEDS 01-21 12:21 → ICUW 01-21 12:21 → MEDS 01-22 15:39
PROVIDERS: Internal Medicine; Physician Assistant; ADMIT Family Medicine
DX: I13.0 Hypertensive heart and chronic kidney disease with heart failure and stage 1 through stage 4 chronic kidney disease, or unspecified chronic kidney disease (principal); E11.00 Type 2 diabetes mellitus with hyperosmolarity without nonketotic hyperglycemic-hyperosmolar coma (NKHHC); I21.A1 Myocardial infarction type 2; I50.23 Acute on chronic systolic (congestive) heart failure; J96.01 Acute respiratory failure with hypoxia; Z66 Do not resuscitate; Z51.5 Encounter for palliative care; G92.8 Other toxic encephalopathy; E87.1 Hypo-osmolality and hyponatremia; N17.9 Acute kidney failure, unspecified; I48.20 Chronic atrial fibrillation, unspecified; L97.929 Non-pressure chronic ulcer of unspecified part of left lower leg with unspecified severity; L97.919 Non-pressure chronic ulcer of unspecified part of right lower leg with unspecified severity; Z20.822 Contact with and (suspected) exposure to COVID-19; E87.6 Hypokalemia; N18.30 Chronic kidney disease, stage 3 unspecified; E87.5 Hyperkalemia; R79.89 Other specified abnormal findings of blood chemistry; Z91.14 Patient's other noncompliance with medication regimen; R41.82 Altered mental status, unspecified; R44.1 Visual hallucinations; E11.51 Type 2 diabetes mellitus with diabetic peripheral angiopathy without gangrene; D63.1 Anemia in chronic kidney disease; D50.9 Iron deficiency anemia, unspecified; I25.10 Atherosclerotic heart disease of native coronary artery without angina pectoris; Z95.1 Presence of aortocoronary bypass graft; J44.9 Chronic obstructive pulmonary disease, unspecified; E83.59 Other disorders of calcium metabolism; E11.42 Type 2 diabetes mellitus with diabetic polyneuropathy; F32.A Depression, unspecified; F43.10 Post-traumatic stress disorder, unspecified; F17.290 Nicotine dependence, other tobacco product, uncomplicated; Z79.4 Long term (current) use of insulin; Z79.01 Long term (current) use of anticoagulants; Z79.899 Other long term (current) drug therapy; Z79.82 Long term (current) use of aspirin
CPT/HCPCS: 0241U; 36415; 36600; 51702; 71045; 80048; 80053; 80061; 81001; 82607; 82728; 82746; 82803; 82947; 83036; 83540; 83550; 83735; 83880; 84484; 85025; 85610; 85730; 93005; 93010; 96360; 96361; 96365; 96375; 99285-25; A9270; C1751; G0378; J1200; J1630; J1644; J1815; J2916; J7030; Q0177